=== PATIENT | female | born 1980 | race Caucasian/White ===

== ENCOUNTER 2016-10-04 21:34 | Emergency (ER) | payer OTHER ==
[~2016-10-04] VITALS: Ht 182.9 cm; Wt 154.6 kg
[2016-10-04 21:43] VITALS: BP 160/104; PULSE 85; RESP 15; O2SAT 100
--- NOTE | 2016-10-04 22:01 | ED.REPORT ---
HPI-Chest Pain Under 40 Date of Service Oct 04, 2016 ED Provider: Dr. Alina Hernández M.D. A 35 year old female with history of pulmonary stenosis, hole in the heart, cardiac murmur, and seizures presents to the ED with worsening left-sided chest pain onset five days ago. The pain is exacerbated with deep breathing and laying on her left side. The patient also reports exertional shortness of breath. She denies fever, chills, cough, nausea, vomiting, diaphoresis, or other symptoms. Nursing Notes Stated Complaint: HEART PAIN Chief Complaint: Chest Pain Nursing Notes Reviewed: Yes Allergies: Coded Allergies: No Known Allergies (Unverified , 10/04/16) Scheduled PRN Hydrocodone-Acetaminophen 5-325 mg (Hydrocodone-Acetaminophen 5-325 mg) 1 Each Tablet 1 TABLET PO Q4H PRN PRN For Pain General Time Seen by MD: 22:01 Chief Complaint Chest pain Hx Obtained From: Patient Arrived By: Walk-in Sudden in Onset?: No Onset Occurred: 5 days ago Symptom Duration: Since onset Location: : Chest left Quality: Painful Severity: Current: Moderate Severity: Maximum: Moderate Associated with: Reports: Shortness of breath, Denies: Cough, non-productive, Fever Pertinent Negative: Relieved by nothing Context Related History: Reports: Acute coronary syndrome Recent Healthcare: No recent doctor visit Past Medical History Past Medical History Pulmonary stenosis Hole in the heart Cardiac murmur Seizures Past Surgical History None reported Smoking History Unknown if Ever Smoker Social History Other Social History: Good social support Ambulatory Status Independent Review of Systems Constitutional: Denies: Chills, Fever Respiratory: Denies: Non-productive cough, Shortness of breath Cardiovascular: Reports: Chest pain (Left) GI: Denies: Nausea, Vomiting Skin: Denies Diaphoresis Complete sys rev & neg: except as marked. Physical Exam Initial Vital Signs Vital Signs (First) Date Time Temp Pulse Resp B/P Pulse Ox O2 Delivery O2 Flow Rate FiO2 10/04/16 21:43 36.7 85 15 160/104 100 Room Air Initial VS: Reviewed, Vital signs abnormal Head / Eyes: Atraumatic, Normocephalic ENT: Conjunctiva normal, No scleral icterus Neck: Supple, Full range of motion Skin: Warm, Dry, No cyanosis Neurologic: Alert, Oriented, Nonfocal Psychiatric: Mood/affect normal, Behavior normal, Normal thought content General/Constitutional: Awake, Alert Respiratory / Chest: Breath sounds NL, Breath sounds = bilat, No respiratory distress Chest Wall / Ribs: Positive: Chest tender upper L Cardiovascular: Heart rate NL, Regular rhythm, Heart sounds NL, No murmurs, No rubs Interpretation & Diagnostics Lab Results Interpretation Result Diagram: 10/04/16215510/04/162155 Test 10/04/16 21:56 White Blood Count 9.5th/mm3 (3.8-10.1) Red Blood Count 4.80mil/mm3 (3.90-5.20) Hemoglobin 13.7g/dL (12.0-15.6) Hematocrit 40.7% (35.0-46.0) Mean Corpuscular Volume 84.8fL (81-100) Mean Corpuscular Hemoglobin 28.5pg (27.0-35.0) Mean Corpuscular Hemoglobin Concent 33.7% (32.0-37.0) Red Cell Distribution Width 14.8% (12.3-15.4) Platelet Count 308bil/L (150-400) Neutrophils (%) (Auto) 51.6% (40-74) Lymphocytes (%) (Auto) 36.3% (14-46) Monocytes (%) (Auto) 7.6% (4-12) Eosinophils (%) (Auto) 4.2% (0-5) Basophils (%) (Auto) 0.1% (0-3) D-Dimer < 0.5mg/L (<0.50) Sodium Level 139mEq/L (134-144) Potassium Level 3.6mEq/L (3.5-5.2) Chloride Level 105mEq/L (97-108) Carbon Dioxide Level 17mmol/L (18-29) Blood Urea Nitrogen 10mg/dL (6-20) Creatinine 0.70mg/dL (0.57-1.00) Estimat Glomerular Filtration Rate 136mL/min (>59) Glucose Level 89mg/dL (60-99) Calcium Level 8.9mg/dL (8.5-10.1) Magnesium Level 2.1mg/dL (1.6-2.6) Total Bilirubin 0.4mg/dL (0.0-1.2) Aspartate Amino Transf (AST/SGOT) 25U/L (0-50) Alanine Aminotransferase (ALT/SGPT) 17U/L (0-32) Alkaline Phosphatase 52U/L (25-150) Troponin T 0.010ug/L (0.0-0.011) Total Protein 7.7g/dL (6.4-8.4) Albumin 4.7g/dL (3.4-5.0) ECG Interpretation ECG Interpretation: Normal sinus rhythm rate 82 Normal intervals Nonspecific T-wave changes in leads II and aVF Time: 21:58 Interpreted by: ED physician X-Ray Chest Interpretation Chest Xray Interpretation: No infiltrates or effusions. View: Portable, 1 view Interpretation / Wet Read by: Wet read ED physician Re-Eval/Medical Decision Med Decision/Clinical Course The patient presents with 4 days of chest pain, she states is constant. She denies ever having this type of pain in the past. She does have some occasional exertional shortness of breath. Her evaluation here was unremarkable. She has perked negative low risk for pulmonary embolus with a negative d-dimer. She is essentially ruled out given 4 days of pain with negative troponin and normal EKG. Additional differential diagnoses considered were pneumonia, musculoskeletal pain, pericarditis, and aortic dissection. Re-Evaluation/Progress : Time of Eval: 23:26 Patient Status: Condition improved Re-Evaluation/Progress Note: Discussed with patient x-ray and lab results, diagnosis, and plan for discharge. Follow-up and return to the ER instructions given. Patient agrees with plan for care and all questions were addressed. Counseled Regarding: Diagnosis, Lab results, Need for follow-up, When/why to return to ED Discharge & Departure Primary Impression: Non-cardiac chest pain Disposition: Home Discharge Condition All VS Reviewed: Yes Condition: Improved Patient Instructions: Chest Pain (ED) Additional Instructions: Thank you for entrusting us with your care. Your exam today was reassuring for any life-threatening causes of your symptoms. Use hydrocodone sparingly as prescribed for pain. Take this medication with food. Make sure to incorporate extra fiber into your diet while taking hydrocodone. Do not drink alcohol, drive, or consume acetaminophen while taking hydrocodone. Call your primary care provider tomorrow for a follow-up appointment. Return to the ER with any new or worsening symptoms. Referrals: Luis Fall MD (PCP) Tami Fierro MD [facility] Scribe Attestation Portions of this note were transcribed by Vinita Vega. I, Dr. Hernández, personally performed the history, physical exam, and medical decision-making; I reviewed and confirmed the accuracy of the information in the transcribed note. Signed by: Donn Capone, 10/04/2016, 23:40 copies to: Tami Fierro MD; Luis Fall MD; [facility] Alina Hernández MD Oct 04, 2016 22:01 VINITA VEGA Oct 04, 2016 22:12
[2016-10-04 22:08] LABS: BASOPHILS % (AUTO) 0.1 % (0-3); EOSINOPHILS % (AUTO) 4.2 % (0-5); MONOCYTES % (AUTO) 7.6 % (4-12); Mean Corpuscular Hemoglobin 28.5 pg (27.0-35.0); Mean Corpuscular Volume 84.8 fL (81-100); NEUTROPHILS % (AUTO) 51.6 % (40-74); Platelet Count 308 bil/L (150-400)
[2016-10-04 22:28] LABS: TROPONIN T 0.01 ug/L (0.0-0.011)
[2016-10-04] MEDS ORDERED: Ketorolac 15 mg/mL Inj IVPUSH ONE (22:30)
[2016-10-04] MEDS ORDERED: Pantoprazole 4 mg/mL 10 mL Inj IVPUSH ONE (22:30)
[2016-10-04] MEDS ORDERED: 0.9% Sodium Chloride 500 ML IV ONE (22:30)
[2016-10-04 22:39] LABS: Magnesium 2.1 mg/dL (1.6-2.6)
[2016-10-04] MEDS ORDERED: HYDROmorphone 0.5 mg/0.5 mL iSecure Syringe IVPUSH ONE (23:00)
[2016-10-04] MEDS ORDERED: HYDR-4003 PO (23:31)
[2016-10-04 23:58] VITALS: BP 148/84; PULSE 70; RESP 16; O2SAT 94
--- NOTE | 2016-10-05 08:08 | DRSVH ---
PROCEDURE: X-RAY CHEST ONE VIEW, PORTABLE ([id number]) INDICATIONS: CHEST PAIN TECHNIQUE: One view of the chest was acquired. COMPARISON: [facility], , CHEST 2VW, 08/02/2012, 17:20. FINDINGS: Surgical changes and devices: None. Lungs and pleura: No pleural effusions or pneumothorax. Lungs are clear. Mediastinum: Mediastinal contours appear normal. Heart size is normal. Bones and chest wall: No suspicious bony lesions. Overlying soft tissues appear unremarkable. IMPRESSION: No acute cardiopulmonary findings. Dictated by: Jenny Snowden M.D. on 10/05/2016 at 8:06 Approved by: Jenny Snowden M.D. on 10/05/2016 at 8:06
== END 2016-10-05 00:01 | disposition home or self-care (01) ==
LOC: SED 21:34
DX: R07.89 Other chest pain (principal); R06.02 Shortness of breath
CPT/HCPCS: 36415; 71010; 80053; 83735; 84484; 85025; 85379; 93005; 96374; 96375; 99285; J1170; J1885; J7040

== ENCOUNTER 2017-01-21 23:51 | Emergency (ER) | payer OTHER ==
[~2017-01-21] VITALS: Ht 180.3 cm; Wt 145.4 kg
[~2017-01-21 23:51] MED LIST: HYDR-4003 PO
--- NOTE | 2017-01-21 23:52 | ED.REPORT ---
HPI-General Illness Date of Service Jan 21, 2017 ED Provider: Dr. Teran 36 y/o female with a hx of pulmonary stenosis, patent foramen ovale, seizures and migraines (on Topamax) and cigarette smoking presents to the ED complaining of dyspnea, onset yesterday. The pt was seen by her PCP yesterday who diagnosed her with Asthma and prescribed an inhaler. The pt reports no change in sx despite using the inhaler. Associated sx include chest pain with breathing, cough with clear sputum and recent hx of cold. She states she and her kids were sick last week. She denies lower extremity edema and tenderness. The pt is concerned she may have pneumonia. She states "I feel like I'm drowning when I lay down". Nursing Notes Stated Complaint: DIFFICULTY BREATHING Nursing Notes Reviewed: Yes Allergies: Coded Allergies: No Known Allergies (Unverified , 01/22/17) Scheduled Loratadine (Claritin) 10 Mg Capsule 10 MG PO DAILY Prednisone (PredniSONE) 20 Mg Tablet 60 MG PO DAILY Scheduled PRN Hydrocodone-Acetaminophen 5-325 mg (Hydrocodone-Acetaminophen 5-325 mg) 1 Each Tablet 1 TABLET PO Q4H PRN PRN For Pain General Time Seen by MD: 23:52 Chief Complaint Other (dyspnea) Hx Obtained From: Patient Arrived By: Walk-in Sudden in Onset?: Yes Onset Occurred: Yesterday Symptom Duration: Since onset Location: : Chest (with deep breathing) Quality: Painful Radiation: : Does not radiate Severity: Current: Mild Severity: Maximum: Mild Recent Healthcare: Recent doctor visit Similar Sx Previous: No Past Medical History Past Medical History Pulmonary stenosis Cardiac murmur Seizures The pt reports a hole in her heart (as per an Echocardiogram by Dr. Marion on 06/08/12: The left ventricle is normal in size. The ejection fraction is estimated to be 55-60%. A patent foramen ovale is suspected. Consider bubble contrast study to evaluate this further. No Pulmonic stenosis identified.) Past Surgical History None reported Smoking History Current Some Day Smoker Social History Other Social History: Good social support Ambulatory Status Independent Review of Systems Full Review of Systems Respiratory: Reports: Prod cough, clear, Shortness of breath Cardiovascular: Reports: Chest pain (with deep breathing), Denies: Edema Musculoskeletal: Denies: Extremity pain Complete sys rev & neg: except as marked. Physical Exam Vital Signs Vital Signs Date Time Temp Pulse Resp B/P Pulse Ox O2 Delivery O2 Flow Rate FiO2 01/22/17 03:03 36.6 78 16 134/87 98 Room Air 01/22/17 02:06 93 18 98 Room Air 01/22/17 00:29 87 18 97 Room Air 01/21/17 23:56 37.1 87 20 151/88 97 Room Air Initial VS: Reviewed Head / Eyes: Atraumatic, Normocephalic Extremities: Vascular intact, Neuro intact, No swelling, No tenderness Skin: Warm, Dry, No cyanosis Neurologic: Alert, Oriented, Nonfocal General/Constitutional: Awake, Alert Behavior: Positive: Anxious ENT: Atraumatic, No sinus tenderness Respiratory / Chest: Atraumatic, Breath sounds = bilat, No rales, No rhonchi Wheezing / Retractions: Positive: Wheeze insp/exp diffuse Bronchospastic. Cardiovascular: Heart rate NL, Regular rhythm, Heart sounds NL, No gallop, No murmurs No lower extremity edema Abdomen: Atraumatic, Soft, Non-tender, No guarding, No rebound Interpretation & Diagnostics Lab Results Interpretation Result Diagram: 01/22/17 0023 01/22/17 0023 Test 01/22/17 00:23 White Blood Count 11.5th/mm3 (3.8-10.1) Red Blood Count 4.58mil/mm3 (3.90-5.20) Hemoglobin 13.1g/dL (12.0-15.6) Hematocrit 40.1% (35.0-46.0) Mean Corpuscular Volume 87.6fL (81-100) Mean Corpuscular Hemoglobin 28.6pg (27.0-35.0) Mean Corpuscular Hemoglobin Concent 32.7% (32.0-37.0) Red Cell Distribution Width 13.9% (12.3-15.4) Platelet Count 347bil/L (150-400) Neutrophils (%) (Auto) 53.6% (40-74) Lymphocytes (%) (Auto) 30.9% (14-46) Monocytes (%) (Auto) 6.0% (4-12) Eosinophils (%) (Auto) 9.0% (0-5) Basophils (%) (Auto) 0.3% (0-3) Prothrombin Time 10.2sec (8.1-12.5) Prothromb Time International Ratio 0.95ratio Activated Partial Thromboplast Time 30.8sec (22.8-33.0) Sodium Level 139mEq/L (134-144) Potassium Level 3.6mEq/L (3.5-5.2) Chloride Level 103mEq/L (97-108) Carbon Dioxide Level 19mmol/L (18-29) Blood Urea Nitrogen 6mg/dL (6-20) Creatinine 0.60mg/dL (0.57-1.00) Estimat Glomerular Filtration Rate 162mL/min (>59) Glucose Level 92mg/dL (60-99) Calcium Level 9.6mg/dL (8.5-10.1) Magnesium Level 1.9mg/dL (1.6-2.6) Total Bilirubin 0.3mg/dL (0.0-1.2) Aspartate Amino Transf (AST/SGOT) 22U/L (0-50) Alanine Aminotransferase (ALT/SGPT) 16U/L (0-32) Alkaline Phosphatase 63U/L (25-150) Troponin T 0.010ug/L (0.0-0.011) Pro-B-Type Natriuretic Peptide 60.82pg/mL (0-130) Total Protein 7.7g/dL (6.4-8.4) Albumin 4.4g/dL (3.4-5.0) Procalcitonin 0.02ng/mL (0.00-0.08) ECG Interpretation ECG Interpretation: Normal sinus rhtyhm. Rate 78 Time: 00:45 Interpreted by: ED physician X-Ray Chest Interpretation Chest Xray Interpretation: Result: unremarkable View: Portable Interpretation / Wet Read by: Wet read ED physician Re-Eval/Medical Decision Med Decision/Clinical Course 36-year-old female with over wheezing. No prior history of asthma but she clearly has reactive airways disease at this point. Likely secondary to infection. No evidence of cardiac involvement. Her recent echo did not disclose the reported patent foramen ovale, and showed no evidence of cardiac dysfunction or pulmonary hypertension on most recent echo. No evidence of CHF or other findings tonight. Home with brief steroid course, albuterol, and plan for follow-up with PCP. Time of Eval: 01:52 Patient Status: Condition unchanged Re-Evaluation/Progress Note: Rechecked pt. She does not feel significantly better. Another dose of Albuterol ordered. Time of Eval: 02:40 Patient Status: Condition improved Re-Evaluation/Progress Note: Rechecked pt. Discussed lab results, imaging results, diagnosis and plan to discharge. Pt understands and agrees with the plan. F/U instructions and RTER warning given. All questions addressed. Counseled Regarding: Diagnosis, Lab results, Need for follow-up, When/why to return to ED Discharge & Departure Primary Impression: Reactive airway disease that is not asthma Additional Impression: Upper respiratory infection URI type: unspecified viral URI Qualified Code: J06.9 - Acute upper respiratory infection, unspecified Disposition: Home Discharge Condition All VS Reviewed: Yes Condition: Stable Patient Instructions: Reactive Airways Disease (ED) Additional Instructions: You are having bronchospasm, probably in response to an infection and/or allergy. Begin Claritin one tablet daily. Albuterol two puffs every four hours with spacer. Prednisone three tablets daily for five days. Follow-up with your doctor in the office. Return if worsening despite treatment. Avoid using perfume, and of course, never smoke again. Your last echo did not reveal any abnormality. Your history shows that you had a patent foramen ovale. Yours may have closed up at this point, as it was not evident from the echo. Your cardiac function was normal. Referrals: OTHER,PHYSICIAN Scribe Attestation Portions of this note were transcribed by Oracio Veliz. I, , personally performed the history, physical exam and medical decision- making;I reviewed and confirmed the accuracy of the information in the transcribed note. Signed by Donn Chen. 01/22/17 03:23 Ulysses Teran MD Jan 21, 2017 23:52 Oracio Veliz Jan 22, 2017 00:58
[2017-01-21 23:56] VITALS: BP 151/88; PULSE 87; RESP 20; O2SAT 97
[2017-01-22] MEDS ORDERED: Dexamethasone 10 mg/mL Inj IVPUSH ONE (00:15)
[2017-01-22] MEDS ORDERED: Albuterol-Ipratropium 3 mL Inhalation Solution NEB ONE (00:15)
[2017-01-22] MEDS ORDERED: Albuterol 2.5 mg/3 mL Inhalation Solution NEB ONE ×2 (00:15→01:55)
[2017-01-22] MEDS: _Proair 200 Puff/8.5 GM Inhaler INHALATION PRN ×2 (00:27→00:29)
[2017-01-22 00:29] VITALS: PULSE 87; RESP 18; O2SAT 97
[2017-01-22 00:34] LABS: BASOPHILS % (AUTO) 0.3 % (0-3); Mean Corpuscular Hemoglobin 28.6 pg (27.0-35.0); Mean Corpuscular Volume 87.6 fL (81-100); NEUTROPHILS % (AUTO) 53.6 % (40-74); Platelet Count 347 bil/L (150-400)
[2017-01-22 01:03] LABS: INR 0.95 ratio
[2017-01-22 01:09] LABS: TROPONIN T 0.01 ug/L (0.0-0.011)
[2017-01-22 01:29] LABS: Magnesium 1.9 mg/dL (1.6-2.6)
[2017-01-22] MEDS ORDERED: LORA10CA PO (01:50)
[2017-01-22] MEDS ORDERED: PRE20 PO (01:50)
[2017-01-22 02:06] VITALS: PULSE 93; RESP 18; O2SAT 98
[2017-01-22 03:03] VITALS: BP 134/87; PULSE 78; RESP 16; O2SAT 98
--- NOTE | 2017-01-22 10:07 | DRSVH ---
PROCEDURE: X-RAY CHEST, TWO VIEWS ([id number]) INDICATIONS: sob, wheeze, hx PFO TECHNIQUE: 2 views of the chest were acquired. COMPARISON: [facility], CR, XR CHEST 1VW (PORTABLE), 10/04/2016, 21:51. [facility], CR, CHEST 2VW, 08/02/2012, 17:20. FINDINGS: Surgical changes and devices: None. Lungs and pleura: No pleural effusions or pneumothorax. Lungs are clear. Mediastinum: Mediastinal contours are normal. Heart size is normal. Bones and chest wall: No suspicious bony abnormalities. Soft tissues appear unremarkable. IMPRESSION: 1. No acute cardiopulmonary disease. Dictated by: Carlos Valente M.D. on 01/22/2017 at 9:57 Approved by: Carlos Valente M.D. on 01/22/2017 at 10:00
== END 2017-01-22 03:07 | disposition home or self-care (01) ==
LOC: SED 23:51
DX: J98.8 Other specified respiratory disorders (principal); J06.9 Acute upper respiratory infection, unspecified; F17.200 Nicotine dependence, unspecified, uncomplicated
CPT/HCPCS: 36415; 71020; 80053; 83735; 83880; 84145; 84484; 85025; 85610; 85730; 93005; 94640; 94644; 96374; 99285; J1100; J7613; J7620